=== PATIENT | male | born 1980 | race Caucasian/White ===

== ENCOUNTER 2023-03-21 14:56 | Emergency (ER) | payer OTHER ==
--- NOTE | 2023-03-21 15:24 | ED ---
Male Urogenital HPI - General Source: patient, RN notes reviewed Mode of arrival: ambulatory Limitations: no limitations <Roxanne Bryant - Last Filed: 03/21/23 15:20> <Mingo Rosario - Last Filed: 03/21/23 16:34> - General Chief complaint: Urogenital Stated complaint: mass on abd Time Seen by Provider: 03/21/23 15:20 - History of Present Illness Initial comments: This is a 42 year old male who presents to the emergency department for a lump to the right groin. This has been present for a long period of time and he has been to 2 urologists, who are unsure what it is. He was then referred to [facility] for exploratory surgery, however before that could take place [place] sent the patient in to make sure "that he was okay". Denies any problems with bowels/bladder. 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 Patient states she's had multiple CTs ultrasounds and was post to follow-up with urology. He began taking cocaine and drinking heavily so he was unable to do so. Patient states he went to [facility] today for rehabilitation and he mentioned this and they wanted him to come here to be medically cleared. Patient states he guarding knows the process a HIDA get this fixed and that includes him following up with urology once he is sober. Patient has no new symptoms no new pain no fevers no dysuria no hematuria (Mingo Rosario) Review of Systems ROS Other: All systems not noted in ROS Statement are negative. <Roxanne Bryant - Last Filed: 03/21/23 15:20> ROS Other: All systems not noted in ROS Statement are negative. <Mingo Rosario - Last Filed: 03/21/23 16:34> ROS Statement: Those systems with pertinent positive or pertinent negative responses have been documented in the HPI. General Exam <Roxanne Bryant - Last Filed: 03/21/23 15:20> <Mingo Rosario - Last Filed: 03/21/23 16:34> - General Exam Comments Initial Comments: Visual Physical Exam Vital signs reviewed General: Well-appearing, nontoxic, no acute distress. Head: Normocephalic, atraumatic Eyes: PERRLA, EOMI ENT: Airway patent Chest: Nonlabored breathing Skin: No visual rash, normal skin tone Neuro: Alert and oriented 3 Musculoskeletal: No gross abnormalities I performed the QuickNote portion of this chart. Signed Roxanne Bryant PA-C. (Roxanne Bryant) GENERAL: Patient is well-developed and well-nourished. Patient is nontoxic and well- hydrated and is in no acute distress. ENT: Neck is soft and supple. No significant lymphadenopathy is noted. Oropharynx is clear. Moist mucous membranes. Neck has full range of motion without eliciting any pain. EYES: The sclera were anicteric and conjunctiva were pink and moist. Extraocular movements were intact and pupils were equal round and reactive to light. Eyelids were unremarkable. ABDOMEN: Soft and nontender with normal bowel sounds. INGUINAL: There is a very small mass in the inguinal area patient states it's been stable to not painful and there is no changes SKIN: Skin is clear with no lesions or rashes and otherwise unremarkable. NEUROLOGIC: Patient is alert and oriented x3. Cranial nerves II through XII are grossly intact. Motor and sensory are also intact. Normal speech, volume and content. Symmetrical smile. MUSCULOSKELETAL: Normal extremities with adequate strength and full range of motion. No lower extremity swelling or edema. No calf tenderness. LYMPHATICS: No significant lymphadenopathy is noted PSYCHIATRIC: Normal psychiatric evaluation. (Mingo Rosario) Course Vital Signs 03/21/23 15:21 Temperature 98 F Pulse Rate 72 Respiratory 16 Rate Blood Pressure 108/59 O2 Sat by Pulse 98 Oximetry Medical Decision Making <Mingo Rosario - Last Filed: 03/21/23 16:34> - Medical Decision Making Was pt. sent in by a medical professional or institution (ANITA Gallegos, TRIP MOTOR OPERATOR, urgent care, hospital, or alf...) When possible be specific @ -[facility] Did you speak to anyone other than the patient for history (EMS, parent, family, police, friend...)? What history was obtained from this source @ -No Did you review nursing and triage notes (agree or disagree)? Why? @ -I reviewed and agree with nursing and triage notes Were old charts reviewed (outside hosp., previous admission, EMS record, old EKG, old radiological studies, urgent care reports/EKG's, alf records)? Report findings @ -No old charts were reviewed Differential Diagnosis (chest pain, altered mental status, abdominal pain women, abdominal pain men, vaginal bleeding, weakness, fever, dyspnea, syncope, headache, dizziness, GI bleed, back pain, seizure, CVA, palpatations, mental health, musculoskeletal)? @ -Hernia, lymph node, mass EKG interpreted by me (3pts min.). @ -As above X-rays interpreted by me (1pt min.). @ -None done CT interpreted by me (1pt min.). @ -None done U/S interpreted by me (1pt. min.). @ -None done What testing was considered but not performed or refused? (CT, X-rays, U/S, labs)? Why? @ -None What meds were considered but not given or refused? Why? @ -None Did you discuss the management of the patient with other professionals (dean sharpe i.eCody Gallegos, PA, TRIP MOTOR OPERATOR, lab, RT, psych nurse, manager social media, research development manager, teacher, executive vice president and chief operating officer, oil field caser)? Give summary @ -No Was smoking cessation discussed for >3mins.? @ -No Was critical care preformed (if so, how long)? @ -No Were there social determinants of health that impacted care today? How? (Homelessness, low income, unemployed, alcoholism, drug addiction, transportation, low edu. Level, literacy, decrease access to med. care, correction, rehab)? @ -No Was there de-escalation of care discussed even if they declined (Discuss DNR or withdrawal of care, Hospice)? DNR status @ -No What co-morbidities impacted this encounter? (DM, HTN, Smoking, COPD, CAD, Cancer, CVA, ARF, Chemo, Hep., AIDS, mental health diagnosis, sleep apnea, morbid obesity)? @ -None Was patient admitted / discharged? Hospital course, mention meds given and route, prescriptions, significant lab abnormalities, going to OR and other pertinent info. @ -Patient did not want to be here he stated he had to come in because [facility] made him. Patient states he's had this small mass on the spermatic cord for a while and he's been evaluated and he states he just needs to follow-up with urology but he hasn't had the time because he's been drinking too much and doing cocaine and that is why she rehabilitation. Patient states after he gets out of rehabilitation he will go follow-up. Patient did not want any workup here whatsoever. And patient states that there is been no change in his condition for quite a while Undiagnosed new problem with uncertain prognosis? @ -No Drug Therapy requiring intensive monitoring for toxicity (Heparin, Nitro, Insulin, Cardizem)? @ -No Were any procedures done? @ -No Diagnosis/symptom? @ -Inguinal mass Acute, or Chronic, or Acute on Chronic? @ -Chronic Uncomplicated (without systemic symptoms) or Complicated (systemic symptoms)? @ -Uncomplicated Side effects of treatment? @ -No Exacerbation, Progression, or Severe Exacerbation? @ -No Poses a threat to life or bodily function? How? (Chest pain, [place], [place], pneumonia, PE, COPD, DKA, ARF, appy, cholecystitis, CVA, Diverticulitis, Homicidal, Suicidal, threat to staff... and all critical care pts) @ -No (Mingo Rosaroi) Disposition <Roxanne Bryant - Last Filed: 03/21/23 15:20> Is patient prescribed a controlled substance at d/c from ED?: No Time of Disposition: 16:34 <Mingo Rosario - Last Filed: 03/21/23 16:34> Clinical Impression: Inguinal mass Disposition: HOME SELF-CARE Condition: Good Additional Instructions: Patient should follow-up with urology as soon as possible Referrals: Nonstaff,Physician [Primary Care Provider] - 1-2 days
[2023-03-21 15:25] VITALS: RESP 16; TEMP 98
[2023-03-21 16:44] VITALS: BP 111/62; PULSE 70
== END 2023-03-21 19:00 | disposition home or self-care (01) ==
LOC: EC 14:56
DX: R19.00 Intra-abdominal and pelvic swelling, mass and lump, unspecified site (principal)
CPT/HCPCS: 99283

== ENCOUNTER 2023-06-19 10:39 | Emergency (ER) | payer OTHER ==
[2023-06-19 11:03] VITALS: BP 115/69; PULSE 80; RESP 20; TEMP 98.2
--- NOTE | 2023-06-19 12:02 | XR ---
EXAMINATION TYPE: XR shoulder complete RT DATE OF EXAM: 06/19/2023 COMPARISON: NONE HISTORY: Pain TECHNIQUE: Three views are submitted. FINDINGS: The osseous structures are intact. There is no acute fracture or dislocation. The AC joint is maint ained. Lucent lesion involving the posterior margin of the right sixth rib. IMPRESSION: 1. No acute process. 2. Lucent lesion posterior right sixth rib recommend bone scan.
--- NOTE | 2023-06-19 12:04 | XR ---
EXAMINATION TYPE: XR tibia fibula LT DATE OF EXAM: 06/19/2023 COMPARISON: NONE HISTORY: Pain TECHNIQUE: Two views are submitted. FINDINGS: The osseous structures are intact. The joint spaces are preserved. Deformity of the talar dome. IMPRESSION: 1. Deformity of the talar dome. Favor osteochondritis dissecans over fracture. Recommend follow-up CT
--- NOTE | 2023-06-19 12:07 | XR ---
EXAMINATION TYPE: XR Hip LT and AP Pelvis DATE OF EXAM: 06/19/2023 COMPARISON: NONE HISTORY: Pain TECHNIQUE: A single AP view of the pelvis is obtained. Two views of the left hip are obtained. FINDINGS: There is bilateral mild hypertrophic arthropathy of the hips. Sclerotic foci bilateral hip likely related to bone island. Cannot exclude a tiny lucent lesion of the inferior right pubic ramus . No acute fracture. No dislocation. SI joints symmetric. IMPRESSION: 1. Bilateral hypertrophic hip arthropathy. 2. No acute fracture.
--- NOTE | 2023-06-19 12:14 | ED ---
Fall HPI - General Chief Complaint: Fall Stated Complaint: Fall Time Seen by Provider: 06/19/23 11:16 Source: patient, RN notes reviewed Mode of arrival: ambulatory Limitations: no limitations - History of Present Illness Initial Comments: 43-year-old male presents emergency Department from [place] for points of a fall. Patient states he slipped on some emesis went to right shoulder, left hip left mcdermott pain. Patient offers no complaints of loss conscious. - Related Data Allergies Allergy/AdvReac Type Severity Reaction Status Date / Time cephalexin [From Keflex] Allergy Anaphylaxis Verified 06/19/23 10:48 Review of Systems ROS Statement: Those systems with pertinent positive or pertinent negative responses have been documented in the HPI. ROS Other: All systems not noted in ROS Statement are negative. Past Medical History Past Medical History: No Reported History History of Any Multi-Drug Resistant Organisms: None Reported Past Surgical History: Orthopedic Surgery Past Psychological History: No Psychological Hx Reported Smoking Status: Current every day smoker Past Alcohol Use History: Heavy Past Drug Use History: Cocaine, Heroin, Opiates General Exam Limitations: no limitations General appearance: alert, in no apparent distress Head exam: Present: atraumatic, normocephalic, normal inspection Eye exam: Present: normal appearance, PERRL, EOMI. Absent: scleral icterus, conjunctival injection, periorbital swelling ENT exam: Present: normal exam, normal oropharynx, mucous membranes moist Neck exam: Present: normal inspection, full ROM. Absent: tenderness, meningismus, lymphadenopathy Respiratory exam: Present: normal lung sounds bilaterally. Absent: respiratory distress, wheezes, rales, rhonchi, stridor Cardiovascular Exam: Present: regular rate, normal rhythm, normal heart sounds. Absent: systolic murmur, diastolic murmur, rubs, gallop, clicks Extremities exam: Present: other (Right shoulder full range of motion mild tenderness neurovascular intact minimal tenderness to left hip able to ambulate, there is an abrasion to the left mid mcdermott with mild tenderness) Neurological exam: Present: alert, oriented X3, CN II-XII intact, reflexes normal. Absent: motor sensory deficit Course Vital Signs 06/19/23 10:46 Temperature 98.2 F Pulse Rate 80 Respiratory 20 Rate Blood Pressure 115/69 O2 Sat by Pulse 99 Oximetry Medical Decision Making - Medical Decision Making Was pt. sent in by a medical professional or institution (Dr., PA, GI TECH, urgent care, hospital, or half-way...) When possible be specific @ -[place] Did you speak to anyone other than the patient for history (EMS, parent, family, police, friend...)? What history was obtained from this source @ -No Did you review nursing and triage notes (agree or disagree)? Why? @ -I reviewed and agree with nursing and triage notes Were old charts reviewed (outside hosp., previous admission, EMS record, old EKG, old radiological studies, urgent care reports/EKG's, half-way records)? Report findings @ -No old charts were reviewed Differential Diagnosis (chest pain, altered mental status, abdominal pain women, abdominal pain men, vaginal bleeding, weakness, fever, dyspnea, syncope, headache, dizziness, GI bleed, back pain, seizure, CVA, palpatations, mental health, musculoskeletal)? @ -[Shoulder fracture, hip fracture, leg fracture EKG interpreted by me (3pts min.). @ -none X-rays interpreted by me (1pt min.). @ -X-ray right shoulder no acute fracture, x-ray left tib-fib no acute fracture x-ray left hip with AP pelvis no acute fracture CT interpreted by me (1pt min.). @ -None done U/S interpreted by me (1pt. min.). @ -None done What testing was considered but not performed or refused? (CT, X-rays, U/S, labs)? Why? @ -None What meds were considered but not given or refused? Why? @ -None Did you discuss the management of the patient with other professionals (professionals i.e. ANITA Gallegos, GI TECH, lab, RT, psych nurse, transition social worker, blacktop spreader, teacher, supply requirements officer, correctional case manager)? Give summary @ -No Was smoking cessation discussed for >3mins.? @ -No Was critical care preformed (if so, how long)? @ -No Were there social determinants of health that impacted care today? How? (Homelessness, low income, unemployed, alcoholism, drug addiction, transportation, low edu. Level, literacy, decrease access to med. care, prison, rehab)? @ -No Was there de-escalation of care discussed even if they declined (Discuss DNR or withdrawal of care, Hospice)? DNR status @ -No What co-morbidities impacted this encounter? (DM, HTN, Smoking, COPD, CAD, Cancer, CVA, ARF, Chemo, Hep., AIDS, mental health diagnosis, sleep apnea, morbid obesity)? @ -None Was patient admitted / discharged? Hospital course, mention meds given and route, prescriptions, significant lab abnormalities, going to OR and other pertinent info. @ -Discharge patient x-rays are negative patient has right shoulder strain, leg contusion will be discharged in stable condition back to [place] Undiagnosed new problem with uncertain prognosis? @ -No Drug Therapy requiring intensive monitoring for toxicity (Heparin, Nitro, Insulin, Cardizem)? @ -No Were any procedures done? @ -No Diagnosis/symptom? @ -Fall, right shoulder sprain left leg contusion Acute, or Chronic, or Acute on Chronic? @ -Acute Uncomplicated (without systemic symptoms) or Complicated (systemic symptoms)? @ -Uncomplicated Side effects of treatment? @ -No Exacerbation, Progression, or Severe Exacerbation? @ -No Poses a threat to life or bodily function? How? (Chest pain, [place], [place], pneumonia, PE, COPD, DKA, ARF, appy, cholecystitis, CVA, Diverticulitis, Homicidal, Suicidal, threat to staff... and all critical care pts) @ -No Disposition Clinical Impression: Fall, Right shoulder strain, Contusion of left leg Disposition: HOME SELF-CARE Condition: Stable Instructions (If sedation given, give patient instructions): Leg Sprain (ED) Additional Instructions: Please return to the Emergency Department if symptoms worsen or any other concerns. Is patient prescribed a controlled substance at d/c from ED?: No Referrals: Nonstaff,Physician [Primary Care Provider] - 1-2 days Time of Disposition: 12:14
== END 2023-06-19 12:40 | disposition home or self-care (01) ==
LOC: EC 10:39
DX: S46.911A Strain of unspecified muscle, fascia and tendon at shoulder and upper arm level, right arm, initial encounter (principal); S80.12XA Contusion of left lower leg, initial encounter; F17.200 Nicotine dependence, unspecified, uncomplicated; F14.90 Cocaine use, unspecified, uncomplicated; F11.90 Opioid use, unspecified, uncomplicated; F15.90 Other stimulant use, unspecified, uncomplicated; Z88.1 Allergy status to other antibiotic agents; W01.0XXA Fall on same level from slipping, tripping and stumbling without subsequent striking against object, initial encounter
CPT/HCPCS: 73502; 99283

== ENCOUNTER 2023-06-24 14:00 | Emergency (ER) | payer OTHER ==
[2023-06-24 14:56] VITALS: RESP 20; TEMP 98.6
--- NOTE | 2023-06-24 15:18 | XR ---
EXAMINATION TYPE: XR chest 1V DATE OF EXAM: 06/24/2023 COMPARISON: NONE HISTORY: Cough and congestion. TECHNIQUE: Single frontal view of the chest is obtained. FINDINGS: There is no focal air space opacity, pleural effusion, or pneumothorax seen. The cardiac silhouette size is within normal limits. The osseous structures are intact. IMPRESSION: No acute process.
[2023-06-24] MEDS ORDERED: AZITHROMYCIN 500 MG TAB PO STA (16:35)
[2023-06-24] MEDS ORDERED: dexAMETHasone 2 MG TAB PO STA (16:35)
--- NOTE | 2023-06-24 16:38 | ED ---
General Adult HPI - General Chief complaint: Upper Respiratory Infection Stated complaint: upper respiratory infection Time Seen by Provider: 06/24/23 16:08 Source: patient, RN notes reviewed, old records reviewed Mode of arrival: ambulatory Limitations: no limitations - History of Present Illness Initial comments: Patient is a 43-year-old male who presents emergency Department clinic upper respiratory infection symptoms ongoing for 5 days. Presents from [facility] facility. Denies any chest pain. States is not improving. Nurse's rhinorrhea. Denies sore throat. Has abdominal pain, nausea, vomiting. Denies any diarrhea. No other acute complaints at this time. Presents for further evaluation seeking antibiotics. I evaluated patient when he was placed in a room. Workup was in triage. - Related Data Previous Rx's Medication Instructions Recorded Azithromycin [Zithromax] 250 mg PO DAILY 4 Days #4 tab 06/24/23 Allergies Allergy/AdvReac Type Severity Reaction Status Date / Time cephalexin [From Keflex] Allergy Anaphylaxis Verified 06/24/23 14:49 Review of Systems ROS Statement: Those systems with pertinent positive or pertinent negative responses have been documented in the HPI. Review of Systems: CONST: Denies fever EYES: Denies blurry vision ENT: Endorses nasal congestion C/V: Denies Chest pain RESP: Denies shortness of breath GI: Denies abdominal pain : Denies dysuria SKIN: Denies rash. MSK: Denies joint pain. NEURO: Denies headache ROS Other: All systems not noted in ROS Statement are negative. Past Medical History Past Medical History: No Reported History History of Any Multi-Drug Resistant Organisms: None Reported Past Surgical History: Orthopedic Surgery Past Psychological History: No Psychological Hx Reported Smoking Status: Current every day smoker Past Alcohol Use History: Heavy Past Drug Use History: Cocaine, Heroin, Opiates General Exam - General Exam Comments Initial Comments: General: Appears in no acute distress. HEAD: Normal with no signs of head trauma. EYES: EOMI. ENT: Hearing grossly intact. Rhinorrhea. Normal posterior oropharynx. No stridor. RESPIRATORY: No respiratory distress. Clear breath sounds bilaterally. No hypoxia. No increased work of breathing. C/V: Regular rate and rhythm. ABD: Abdomen is nondistended. EXT: No obvious deformity. SKIN: No rashes or lesions observed on exposed skin. NEURO: Alert and oriented. Limitations: no limitations Course Vital Signs 06/24/23 06/24/23 14:45 16:21 Temperature 98.6 F Pulse Rate 91 84 Respiratory 20 20 Rate Blood Pressure 116/68 106/71 O2 Sat by Pulse 97 98 Oximetry Medical Decision Making - Medical Decision Making Was pt. sent in by a medical professional or institution (, ANITA, OUTSIDE LABORER, urgent care, hospital, or senior living...) When possible be specific @ -No Did you speak to anyone other than the patient for history (EMS, parent, family, police, friend...)? What history was obtained from this source @ -No Did you review nursing and triage notes (agree or disagree)? Why? @ -I reviewed and agree with nursing and triage notes Were old charts reviewed (outside hosp., previous admission, EMS record, old EKG, old radiological studies, urgent care reports/EKG's, senior living records)? Report findings @ -No old charts were reviewed Differential Diagnosis (chest pain, altered mental status, abdominal pain women, abdominal pain men, vaginal bleeding, weakness, fever, dyspnea, syncope, headache, dizziness, GI bleed, back pain, seizure, CVA, palpatations, mental health, musculoskeletal)? @ -URI, Covid infection, flu, pneumonia, sinusitis. This list not all inclusive. EKG interpreted by me (3pts min.). @ -None done X-rays interpreted by me (1pt min.). @ -Chest x-ray reveals no obvious acute cardio pulmonary process or infection. CT interpreted by me (1pt min.). @ -None done U/S interpreted by me (1pt. min.). @ -None done What testing was considered but not performed or refused? (CT, X-rays, U/S, labs)? Why? @ -None What meds were considered but not given or refused? Why? @ -None Did you discuss the management of the patient with other professionals (professionals i.e. ANITA Gallegos, OUTSIDE LABORER, lab, RT, psych nurse, social insurance analyst, social sciences lecturer, teacher, chief contract officer, case management specialist)? Give summary @ -No Was smoking cessation discussed for >3mins.? @ -No Was critical care preformed (if so, how long)? @ -No Were there social determinants of health that impacted care today? How? (Homelessness, low income, unemployed, alcoholism, drug addiction, transportation, low edu. Level, literacy, decrease access to med. care, intermediate, rehab)? @ -No Was there de-escalation of care discussed even if they declined (Discuss DNR or withdrawal of care, Hospice)? DNR status @ -No What co-morbidities impacted this encounter? (DM, HTN, Smoking, COPD, CAD, Cancer, CVA, ARF, Chemo, Hep., AIDS, mental health diagnosis, sleep apnea, morbid obesity)? @ -None Was patient admitted / discharged? Hospital course, mention meds given and route, prescriptions, significant lab abnormalities, going to OR and other pertinent info. @ -Based on the patient's presentation and physical exam, there is concern for upper respiratory infection. Viral swabs were already obtained and are negative. Chest x-ray shows no obvious acute infection. Vital signs within acceptable limits. I discussed results with the patient. He is asking for antibiotics. I believe this is reasonable considering his have been having symptoms for 5-7 days. He'll be given a Z-Ryan as well as a dose of steroid. Strict return precautions discussed. He is in agreement this plan. I will provide the patient with a prescription for azithromycin. I instructed the patient to follow up with their PCP in the next 1-3 days . I explained that the patient should return to the emergency department if they experience any worsening symptoms. Strict return precautions were discussed with the patient. The patient expressed understanding of these instructions. I answered all questions that the patient had. The patient was discharged home in good condition with their prescriptions and follow up information. Patient discharged back to rehab. Undiagnosed new problem with uncertain prognosis? @ -No Drug Therapy requiring intensive monitoring for toxicity (Heparin, Nitro, Insulin, Cardizem)? @ -No Were any procedures done? @ -No Diagnosis/symptom? @ -Tracheobronchitis Acute, or Chronic, or Acute on Chronic? @ -Acute Uncomplicated (without systemic symptoms) or Complicated (systemic symptoms)? @ -Complicated Side effects of treatment? @ -No Exacerbation, Progression, or Severe Exacerbation? @ -No Poses a threat to life or bodily function? How? (Chest pain, [place], [place], pneumonia, PE, COPD, DKA, ARF, appy, cholecystitis, CVA, Diverticulitis, Homicidal, Suicidal, threat to staff... and all critical care pts) @ -No - Lab Data Lab Results 11/18/23 Range/Units 14:51 Influenza Type A (PCR) Not Detected (Not Detectd) Influenza Type B (PCR) Not Detected (Not Detectd) RSV (PCR) Not Detected (Not Detectd) SARS-CoV-2 (PCR) Not Detected (Not Detectd) Disposition Clinical Impression: Tracheobronchitis Disposition: HOME SELF-CARE Condition: Good Instructions (If sedation given, give patient instructions): Upper Respiratory Infection (ED) Prescriptions: Azithromycin [Zithromax] 250 mg PO DAILY 4 Days #4 tab Is patient prescribed a controlled substance at d/c from ED?: No Referrals: None,Stated [Primary Care Provider] - 1-2 days Forms: PH Area PCPs Time of Disposition: 16:34
[2023-06-24 16:55] VITALS: BP 106/71; PULSE 84
== END 2023-06-24 17:08 | disposition home or self-care (01) ==
LOC: EC 14:00
DX: J40 Bronchitis, not specified as acute or chronic (principal); F17.200 Nicotine dependence, unspecified, uncomplicated; F14.90 Cocaine use, unspecified, uncomplicated; F15.90 Other stimulant use, unspecified, uncomplicated; F11.90 Opioid use, unspecified, uncomplicated; Z88.1 Allergy status to other antibiotic agents; Z20.822 Contact with and (suspected) exposure to COVID-19
CPT/HCPCS: 99283; 87636; 71045; J8540